=== PATIENT | female | born 1940 | race African-American/Black ===

== ENCOUNTER 2016-06-16 22:10 | Emergency (ER) | payer OTHER ==
--- NOTE | ~2016-06-16 | CT52 ---
[facility] A Service of [facility] & [facility] RADIOLOGY TEXT RESULTS PATIENT: NOEL AMAYA LOCATION: [facility] : 40 UNIT #: [id number] AGE: [address]: Tyler Hand MD SEX: F ORDER DR: [id number] [facility] [address] [place], [place] [address] [id number] E MR#: [id number] Acc #: [id number] NAME: NOEL AMAYA : 1940 SEX: F STUDY DATE/TIME: 06/16/2016 20:37 UNIT: [facility] ROOM: STUDY DESCRIPTION: CT Cervical Spine Wo Cont Attending Physician: Jimy Johns M.D. Ordering Physician: Mahamed Dhillon M.D. Primary Care Physician: Eyal Kirby M.D. MEDICAL IMAGING REPORT This report is preliminary unless electronic signature is present EXAM CT scan of the cervical spine without contrast, 06/16/2016 HISTORY Neck pain status post fall from edge of bed today, hit head. Previous cervical spine fusion. FINDINGS This CT exam was performed with one or more of the following radiation dose reduction techniques: Automatic exposure control, adjustment of mA and/or kV according to patient size, and iterative reconstruction. Spiral CT was performed through the cervical spine without intrathecal contrast administration, as per clinician request. Sagittal and coronal reconstructions were then performed through the cervical spine. Exam is somewhat limited for determination of discogenic disease due to the lack of intrathecal contrast. Extensive degenerative and postsurgical changes are seen within the cervical spine. There is straightening of the cervical spine with loss of the normal lordotic curve. Extensive calcifications are seen with osteophytic spurring from anterior and posteriorly from C2-C7, and there is degenerative change involving the articular facets. There is no CT evidence of cervical spine fracture. IMPRESSION Extensive degenerative and postsurgical changes in the cervical spine with large anterior and posterior osteophytes, primarily posteriorly throughout the cervical spine. No CT evidence of cervical spine fracture. Dictated by... Sukhwinder Chilel M.D. THIS IS AN ELECTRONICALLY VERIFIED REPORT [facility] A Service of [facility] & [facility] RADIOLOGY TEXT RESULTS PATIENT: NOEL AMAYA LOCATION: [facility] : 40 UNIT #: [id number] AGE: [address]: Tyler Hand MD SEX: F ORDER DR: Sukhwinder Chilel M.D. at 06/17/2016 4:21 PM KRT/caitie TD: 06/17/2016 03:13 JOB #: [id number] MEDICAL IMAGING REPORT COPY
--- NOTE | ~2016-06-16 | CR173 ---
[facility] A Service of [facility] RADIOLOGY TEXT RESULTS PATIENT: NOEL AMAYA LOCATION: [facility] : 40 UNIT #: [id number] AGE: [address]: Tyler Hand MD SEX: F ORDER DR: [id number] [facility] [address] [place], [place] [address] [id number] E MR#: [id number] Acc #: [id number] NAME: NOEL AMAYA : 1940 SEX: F STUDY DATE/TIME: 06/16/2016 22:08 UNIT: [facility] ROOM: STUDY DESCRIPTION: CR Knee 3 Views Rt Attending Physician: Er Doctor [facility] Ordering Physician: Tyler Hand M.D. Primary Care Physician: Eyal Kirby M.D. MEDICAL IMAGING REPORT This report is preliminary unless electronic signature is present EXAM Right knee, 3 views COMPARISON: 06/12/15 HISTORY 75-year-old female with right knee pain after falling out of bed today. FINDINGS There are tibial spine and femoral notch osteophytes. There is an increased small suprapatellar effusion. There is calcification of the superficial femoral artery just above the knee. There is severe enthesopathy at both poles of the patella with mild osteophyte formation at both poles of the patella. There is small enthesophyte seen at the tibial tubercle. No evidence of acute fracture. IMPRESSION 1. No acute fracture or dislocation. Small possibly increased right suprapatellar effusion. 2. Arterial calcification in the distal thigh. 3. Marked enthesopathy at the patella with mild tibial tubercle enthesopathy. Mild degenerative changes seen elsewhere in the knee as described in the body of the report. Dictated by... Jason Roberto M.D. THIS IS AN ELECTRONICALLY VERIFIED REPORT Jason Roberto M.D. at 06/18/2016 8:48 AM [facility] A Service of [facility] RADIOLOGY TEXT RESULTS PATIENT: LUTER,NOEL LOCATION: [facility] : 40 UNIT #: [id number] AGE: [address]: Tyler Hand MD SEX: F ORDER DR: Karyn TD: 06/17/2016 07:59 JOB #: [id number] MEDICAL IMAGING REPORT COPY
--- NOTE | ~2016-06-16 | CR206 ---
[facility] A Service of [facility] RADIOLOGY TEXT RESULTS PATIENT: NOEL AMAYA LOCATION: [facility] : 40 UNIT #: [id number] AGE: [address]: Tyler Hand MD SEX: F ORDER DR: [id number] [facility] [address] [place], [place] [address] [id number] E MR#: [id number] Acc #: [id number] NAME: NOEL AMAYA : 1940 SEX: F STUDY DATE/TIME: 06/16/2016 22:08 UNIT: [facility] ROOM: STUDY DESCRIPTION: CR Pelvis 1 or 2 Views Attending Physician: Er Doctor [facility] Ordering Physician: Tyler Hand M.D. Primary Care Physician: Eyal Kirby M.D. MEDICAL IMAGING REPORT This report is preliminary unless electronic signature is present EXAM AP view of the pelvis. COMPARISON Two-views of the hip dated May 28, [address] abdomen and pelvis dated April 29, 2014. INDICTIONS 75-year-old female with bilateral hip pain after falling out of bed today. FINDINGS There is mild spondylosis of the lower lumbar spine. There are degenerative changes of both hips. Detailed evaluation of the bones is limited by soft tissue attenuation. No definite acute fracture is seen. There is enthesopathy at the greater trochanters bilaterally. This is mild. There is heterotopic calcification in the soft tissues lateral to the left iliac wing. IMPRESSION 1. The exam is limited by soft tissue attenuation. Bony detail of the femoral heads is not well seen. No acute fracture is visible on the current exam. If high persistent suspicion consider CT evaluation. 2. Mild degenerative changes of both hips including mild bilateral greater trochanter enthesopathy. 3. Mild degenerative changes of the lower lumbar spine. Dictated by... Jason Roberto M.D. THIS IS AN ELECTRONICALLY VERIFIED REPORT [facility] A Service [facility] RADIOLOGY TEXT RESULTS PATIENT: NOEL AMAYA LOCATION: [facility] : 40 UNIT #: [id number] AGE: [address]: Tyler Hand MD SEX: F ORDER DR: Jason Roberto M.D. at 06/19/2016 8:49 PM ELVIRA/adrien TD: 06/17/2016 07:52 JOB #: [id number] MEDICAL IMAGING REPORT COPY
--- NOTE | ~2016-06-16 | CT71 ---
[facility] A Service of [facility] & [facility] RADIOLOGY TEXT RESULTS PATIENT: NOEL AMAYA LOCATION: [facility] : 40 UNIT #: [id number] AGE: [address]: Tyler Hand MD SEX: F ORDER DR: [id number] [facility] [address] [place], [place] [address] [id number] E MR#: [id number] Acc #: [id number] NAME: NOEL AMAYA : 1940 SEX: F STUDY DATE/TIME: 06/16/2016 20:31 UNIT: [facility] ROOM: STUDY DESCRIPTION: CT Head Wo Contrast Attending Physician: Jimy Johns M.D. Ordering Physician: Mahamed Dhillon M.D. Primary Care Physician: Eyal Kirby M.D. MEDICAL IMAGING REPORT This report is preliminary unless electronic signature is present EXAM Head CT without contrast, 06/16/2016 HISTORY Headache and neck pain status post fall from edge of bed today, hit head. TECHNIQUE This CT exam was performed with one or more of the following radiation dose reduction techniques: Automatic exposure control, adjustment of mA and/or kV according to patient size, and iterative reconstruction. FINDINGS Axial images of the brain obtained without contrast show generalized atrophy. There are chronic ischemic changes seen around the ventricles. There is no evidence of mass effect, hemorrhage, or edema and no midline shift is seen. No acute changes are noted. IMPRESSION Atrophy with chronic ischemic changes. No acute changes are seen. Dictated by... Sukhwinder Chilel M.D. THIS IS AN ELECTRONICALLY VERIFIED REPORT Sukhwinder Chilel M.D. at 06/17/2016 4:20 PM MATTHEW/caitie TD: 06/17/2016 02:48 JOB #: [id number] MEDICAL IMAGING REPORT COPY
[2016-06-16 22:41] LABS: INR 2.5; PROTHROMBIN TIME (PATIENT) 27.5 SECONDS (9.6-11.5)
== END 2016-06-16 23:38 | disposition home or self-care (01) ==
LOC: CFTX 22:10
PROVIDERS: Emergency Medicine
DX: S80.01XA Contusion of right knee, initial encounter (principal); S09.90XA Unspecified injury of head, initial encounter; M25.461 Effusion, right knee; I10 Essential (primary) hypertension; I48.91 Unspecified atrial fibrillation; E11.9 Type 2 diabetes mellitus without complications; Z90.710 Acquired absence of both cervix and uterus; Z88.0 Allergy status to penicillin; Z88.2 Allergy status to sulfonamides; Z91.013 Allergy to seafood; Z88.8 Allergy status to other drugs, medicaments and biological substances; W06.XXXA Fall from bed, initial encounter; Y92.009 Unspecified place in unspecified non-institutional (private) residence as the place of occurrence of the external cause
CPT/HCPCS: 36415; 70450; 72125; 72170; 73562; 82947; 85610; 99284